=== PATIENT | male | born 1965 | race Caucasian/White ===

== ENCOUNTER 2020-09-05 14:18 | Observation (INO) ==
[2020-09-05] MEDS ORDERED: ASPIRIN CHEW 81 MG TABLET PO STA (15:36)
[2020-09-05 16:00] LABS: Basophils # 0.1 10*3/uL (0.0-0.2); Basophils % 0.5 % (0.0-0.8); Eosinophils # 0.3 10*3/uL (0.0-0.87); Eosinophils % 2.9 % (0.00-10.9); Hematocrit 44.5 VOL% (42.0-52.0); Hemoglobin 14.5 GM/DL (14.0-18.0); Immature Granulocytes % 0.6 %; Immature Granulocytes Absolute 0.06 #; Lymphocytes # 2.5 10*3/uL (1.4-4.0); Lymphocytes % 25.6 % (21.2-54.2); Mean Corpuscular HGB Conc 32.6 GM/DL (32-36); Mean Corpuscular Volume 90.8 FL (87-102); Mean Platelet Volume 9.8 FL (9.6-12.0); Monocytes % 7.2 % (1.7-12.7); Neutrophils % 63.2 % (38.7-73.9); Platelet Count 342 T/CUMM (130-400); Red Cell Distribution Width 13.8 % (9.3-17.3); White Blood Count 9.9 T/CUMM (4-12)
[2020-09-05 16:23] LABS: Alanine Aminotransferase 45 U/L (16-61); Albumin 3.4 G/DL (3.4-5.0); Alkaline Phosphatase 103 U/L (45-117); Aspartate Amino Transferase 7 U/L (0-37); Bilirubin,Total < 0.39 MG/DL (0.2-1.0); Blood Urea Nitrogen 15 MG/DL (7-18); Calcium 9.1 MG/DL (8.5-10.1); Carbon Dioxide 32 MMOL/L (21-32); Estimated Glom Filtration Rate 92 ML/MIN; Glucose 95 MG/DL (74-106); Osmolality,Calculated 273.8 MOS/KG (273-304); Potassium 4.3 MMOL/L (3.5-5.1); Sodium 137 MMOL/L (136-145)
[2020-09-05 16:53] LABS: Barbiturates Screen,Urine Negative (Negative); Benzodiazepines Screen,Urine Negative (Negative); Cannabinoid Screen,Urine Negative (Negative); Opiate Screen,Urine Negative (Negative); Phencyclidine Screen,Urine Negative (Negative)
[2020-09-05] MEDS ORDERED: GLUCAGON 1 MG VIAL IM PRN (17:49)
[2020-09-05] MEDS ORDERED: DOCUSATE SODIUM 100 MG CAPSULE PO PRN (17:49)
[2020-09-05] MEDS ORDERED: ACETAMINOPHEN 325 MG TABLET PO PRN (17:49)
[2020-09-05] MEDS ORDERED: hydrALAZINE 20 MG/1 ML VIAL IV PRN (17:49)
[2020-09-05] MEDS ORDERED: ONDANSETRON 4 MG/2 ML VIAL IV PRN (17:49)
[2020-09-05] MEDS ORDERED: DEXTROSE 50% 25 GM/50 ML VIAL IV PRN (17:49)
[2020-09-05] MEDS ORDERED: SODIUM CHLORIDE 0.9% 1,000 ML IV SCH (18:00)
[2020-09-05] MEDS ORDERED: NICOTINE 21 MG/24 HR PATCH TRANSDERM PRN (18:09)
[2020-09-05 19:45] LABS: Amorphous Crystals,Urine Occasional /HPF (Few); Bilirubin,Urine Negative (Negative); Blood, Urine Negative (Negative); Glucose,Urine (UA) Negative (Negative); Ketones,Urine Negative (Negative); Mucus,Urine Occasional /LPF (Occasional); Nitrite,Urine Negative (Negative); Protein,Urine Negative; RBC,Urine 1 /HPF (0-4); Urine Appearance Slightly Hazy (Clear); Urine Color Yellow (Yellow); Urine Specific Gravity 1.015 (1.001-1.035); Urine Urobilinogen < 2.0 EU/DL (0.2-1.0); WBC,Urine 1 /HPF (0-6)
[2020-09-05] MEDS ORDERED: ENOXAPARIN 40 MG/0.4 ML SYRINGE SUBCUT SCH (21:00)
[2020-09-05] MEDS ORDERED: traZODone 50 MG TABLET PO SCH (22:00)
[2020-09-05] MEDS: levETIRAcetam 500 MG TABLET PO SCH (22:36)
[2020-09-06] MEDS ORDERED: ZALEPLON 5 MG CAPSULE PO PRN
[2020-09-06] MEDS: IBUPROFEN 400 MG TABLET PO PRN ×2 (00:30→09:12)
[2020-09-06 06:12] LABS: Basophils # 0.1 10*3/uL (0.0-0.2); Basophils % 0.9 % (0.0-0.8); Eosinophils # 0.5 10*3/uL (0.0-0.87); Eosinophils % 5.2 % (0.00-10.9); Hematocrit 43.5 VOL% (42.0-52.0); Hemoglobin 14.2 GM/DL (14.0-18.0); Immature Granulocytes % 0.7 %; Immature Granulocytes Absolute 0.07 #; Lymphocytes # 3.3 10*3/uL (1.4-4.0); Lymphocytes % 33.4 % (21.2-54.2); Mean Corpuscular HGB Conc 32.6 GM/DL (32-36); Mean Corpuscular Volume 90.8 FL (87-102); Mean Platelet Volume 10.4 FL (9.6-12.0); Monocytes % 7.3 % (1.7-12.7); Neutrophils % 52.5 % (38.7-73.9); Platelet Count 334 T/CUMM (130-400); Red Blood Count 4.79 MC/CUMM (3.8-5.5); Red Cell Distribution Width 13.8 % (9.3-17.3); White Blood Count 9.8 T/CUMM (4-12)
[2020-09-06 08:03] LABS: Calcium 8.7 MG/DL (8.5-10.1); Risk Ratio 4.29; Thyroid Stimulating Hormone 0.487 uIU/ml (0.358-3.74); VLDL CHOLESTEROL 24.2 MG/DL
[2020-09-06 08:27] VITALS: BP 112/63
[2020-09-06] MEDS ORDERED: PANTOPRAZOLE 40 MG TABLET PO SCH (09:00)
[2020-09-06] MEDS: levETIRAcetam 500 MG TABLET PO SCH (09:12)
[2020-09-06] MEDS ORDERED: CETIRIZINE 10 MG TABLET PO SCH (10:28)
[2020-09-07] MEDS ORDERED: CETIRIZINE 10 MG TABLET PO SCH (09:00)
== END 2020-09-06 11:32 ==
LOC: N.ED 14:18 → N.EDINP 14:18 → N.TELES 19:52
PROVIDERS: ADMIT Internal Medicine; ATTEND Internal Medicine